=== PATIENT | male | born 1945 | race Caucasian/White ===

== ENCOUNTER 2017-10-08 18:55 | Emergency (ER) | payer OTHER, BC ==
[~2017-10-08] VITALS: Ht 180.3 cm; Wt 91.8 kg
[~2017-10-08 18:55] MED LIST: CHOLESTEROL MED PO; DAILY VITAMIN1 EAC4 PO; KEFLEX500 MG PO; LO-DOSE ASPIRIN81 M1 PO; NORCO 5/3251 TABLET PO; VIAGRA100 MG PO; ZOFRAN ODT8 MG PO; [UNRECOGNIZED DRUG - REMARK] PO
[2017-10-08 21:51] VITALS: BP 131/70
== END 2017-10-08 21:52 | disposition home or self-care (01) ==
LOC: EME 18:55 → EXP 18:55
DX: Z48.01 Encounter for change or removal of surgical wound dressing (principal); Z47.1 Aftercare following joint replacement surgery; Z89.512 Acquired absence of left leg below knee; E78.5 Hyperlipidemia, unspecified; Z79.82 Long term (current) use of aspirin; Z87.891 Personal history of nicotine dependence
CPT/HCPCS: 99281; 99284